=== PATIENT | male | born 1995 | race American Indian/Alaskan Native ===

== ENCOUNTER 2020-07-13 03:27 | Emergency (ER) | payer SELFPAY ==
--- NOTE | 2020-07-13 04:38 | EDM.PDOC ---
ED HPI GENERAL MEDICAL PROBLEM - General Chief Complaint: Genitourinary Problem Stated Complaint: URINATING BLOOD Time Seen by Provider: 07/13/20 03:55 Source of Information: Reports: Patient, RN, RN Notes Reviewed History Limitations: Reports: No Limitations - History of Present Illness INITIAL COMMENTS - FREE TEXT/NARRATIVE: Patient presents to the ED via personal vehicle with complaints of gross hematuria. The patient reports he first noted the hematuria three days ago following sexual intercourse. He has since noted the blood transiently when he urinates. He denies dysuria or inability to fully void. He denies fever, shaking chills, palpitations, nausea, vomiting, diarrhea, melena, or hematochezia. He does note the intercourse was with a new partner and he did n ot wear a condom. The patient states he has been taking amoxicillin for two days, which he got from a family member. - Related Data Allergies Allergy/AdvReac Type Severity Reaction Status Date / Time bee venom protein (honey bee) Allergy Swelling Verified 07/13/20 03:34 Home Meds: Home Meds . [No Known Home Meds] 07/13/20 [History] Past Medical History - Past Health History Medical/Surgical History: Denies Medical/Surgical History Social & Family History - Tobacco Use Tobacco Use Status *Q: Current Every Day Tobacco User Years of Tobacco use: 8 Packs/Tins Daily: 0.2 Second Hand Smoke Exposure: Yes - Recreational Drug Use Recreational Drug Use: Yes Drug Use in Last 12 Months: Yes Recreational Drug Type: Reports: Marijuana/Hashish ED ROS GENERAL - Review of Systems Review Of Systems: Comprehensive ROS is negative, except as noted in HPI. ED EXAM, RENAL/ - Physical Exam Exam: See Below Exam Limited By: No Limitations General Appearance: Alert, No Apparent Distress Throat/Mouth: Normal Voice, No Airway Compromise Respiratory/Chest: No Respiratory Distress, Lungs Clear, Normal Breath Sounds, No Accessory Muscle Use, Chest Non-Tender Cardiovascular: Normal Peripheral Pulses, Regular Rate, Rhythm, No Edema, No Gallop, No JVD, No Murmur, No Rub GI/Abdominal: Normal Bowel Sounds, Soft, Non-Tender, No Distention, No Abnormal Bruit, No Mass, Pelvis Stable Back Exam: Normal Inspection, Full Range of Motion. No: CVA Tenderness (L), CVA Tenderness (R) Extremities: Normal Inspection, Normal Range of Motion, Non-Tender, Normal Capillary Refill, No Pedal Edema Neurological: Alert, Oriented, CN II-XII Intact, Normal Cognition, Normal Gait, No Motor/Sensory Deficits Psychiatric: Normal Affect, Normal Mood Skin Exam: Warm, Dry, Intact, Normal Color, No Rash. No: Ecchymosis, Erythema, Jaundice, Mottled, Pallor, Petechiae Course - Vital Signs Last Recorded V/S: Last Vital Signs Temp 97.9 F 07/13/20 03:31 Pulse 106 H 07/13/20 03:31 Resp 18 07/13/20 03:31 BP 128/83 07/13/20 03:31 Pulse Ox 97 07/13/20 03:31 - Orders/Labs/Meds Labs: Laboratory Tests 07/13/20 07/13/20 07/13/20 Range/Units 03:35 04:19 04:19 WBC 5.3 (5.0-10.0) 10^3/uL RBC 5.37 (4.6-6.2) 10^6/uL Hgb 16.4 (14.0-18.0) g/dL Hct 46.5 (40.0-54.0) % MCV 86.6 (80-100) fL MCH 30.5 (27.0-34.0) pg MCHC 35.3 H (33.0-35.0) g/dL Plt Count 209 (150-450) 10^3/uL Neut % (Auto) 43.1 (42.2-75.2) % Lymph % (Auto) 48.0 (20.5-50.1) % [place] % (Auto) 6.4 (2-8) % Eos % (Auto) 1.7 (1.0-3.0) % Baso % (Auto) 0.8 (0.0-1.0) % Add Manual Diff Yes Neutrophils % (Manual) 43 (42-75) % Band Neutrophils % 3 % Lymphocytes % (Manual) 45 (20-50) % Monocytes % (Manual) 7 (2-8) % Eosinophils % (Manual) 2 (1-3) % Sodium 146 H (136-145) mmol/L Potassium 3.7 (3.5-5.1) mmol/L Chloride 106 (98-107) mmol/L Carbon Dioxide 29 (21-32) mmol/L Anion Gap 14.7 H (7-13) mEq/L BUN 10 (7-18) mg/dL Creatinine 0.98 (0.70-1.30) mg/dL Est Cr Clr Drug Dosing 120.01 mL/min Estimated GFR (MDRD) > 60 BUN/Creatinine Ratio 10.2 (No establ ref range) Glucose 101 H (74-99) mg/dL Calcium 8.1 L (8.5-10.1) mg/dL Total Bilirubin 0.5 (0.2-1.0) mg/dL AST 37 (15-37) U/L ALT 77 H (16-63) U/L Alkaline Phosphatase 103 (46-116) U/L Total Protein 7.6 (6.4-8.2) g/dL Albumin 3.9 (3.4-5.0) g/dL Globulin 3.7 Albumin/Globulin Ratio 1.1 Urine Color Dark yellow (YELLOW) Urine Appearance Cloudy (CLEAR) Urine pH 5.5 (5.0-9.0) Ur Specific [place] >= 1.030 (1.005-1.030) Urine Protein 100 H (NEGATIVE) Urine Glucose (UA) Negative (NEGATIVE) Urine Ketones Negative (NEGATIVE) Urine Occult Blood Large H (NEGATIVE) Urine Nitrite Negative (NEGATIVE) Urine Bilirubin Negative (NEGATIVE) Urine Urobilinogen 0.2 (0.2-1.0) mg/dL Ur Leukocyte Esterase Negative (NEGATIVE) Urine RBC >100 H /HPF Urine WBC 0-5 (0-5/HPF) /HPF Ur Epithelial Cells Rare (NOT SEEN) /HPF Amorphous Sediment Few (NOT SEEN) /HPF Urine Bacteria Few (0-FEW/HPF) /HPF Granular Casts (Auto) Occasional Urine Mucus Few H (NOT SEEN) /LPF - Re-Assessments/Exams Free Text/Narrative Re-Assessment/Exam: 07/13/20 UA remarkable for large amount of occult blood and RBC; no evidence of infection. CBC unremarkable for acute processes. Liver and kidney function appropriate. CT abdomen and pelvis unremarkable for acute processes; no evidence of stones, ureter dilation, ductal dilation, bladder wall thickening, or hydronephrosis. Unable to discuss findings with patient as he left AMA following CT scan. Departure - Departure Time of Disposition: 06:22 Disposition: Against Medical Advice 07 Condition: Good Clinical Impression: Left against medical advice - Discharge Information *PRESCRIPTION DRUG MONITORING PROGRAM REVIEWED*: Not Applicable *COPY OF PRESCRIPTION DRUG MONITORING REPORT IN PATIENT KAREN: Not Applicable Instructions: Hematuria, Adult Referrals: PCP,Unobtain [Primary Care Provider] - Forms: ED Department Discharge Additional Instructions: 1.) Follow up with primary care provider should blood in urine continue. 2.) You will be contacted regarding your STD test. 3.) Do no take antibiotics that are not prescribed to you. Sepsis Event Note (ED) - Evaluation Sepsis Screening Result: No Definite Risk
[2020-07-13 04:44] LABS: ANION GAP 14.7 mEq/L (7-13); CHLORIDE,CL 106 mmol/L (98-107); SODIUM,NA 146 mmol/L (136-145)
--- NOTE | 2020-07-13 05:20 | CT ---
PROCEDURE INFORMATION: Exam: CT Abdomen And Pelvis Without Contrast Exam date and time: 07/13/2020 4:46 AM Age: 25 years old Clinical indication: Other: Gross hematuria; Prior surgery; Surgery date: 6+ months; Surgery type: Appendix removed; Additional info: Gross hematuria x3 days; R/O renal stones TECHNIQUE: Imaging protocol: Computed tomography of the abdomen and pelvis without contrast. Radiation optimization: All CT scans at this facility use at least one of these dose optimization techniques: automated exposure control; mA and/or kV adjustment per patient size (includes targeted exams where dose is matched to clinical indication); or iterative reconstruction. COMPARISON: No relevant prior studies available. FINDINGS: Liver: Fatty infiltration of the liver. Gallbladder and bile ducts: Normal. No calcified stones. No ductal dilation. Pancreas: Normal. No ductal dilation. Spleen: Normal. No splenomegaly. Adrenal glands: Normal. No mass. Kidneys and ureters: Normal. No hydronephrosis. Stomach and bowel: Unremarkable. No obstruction. No mucosal thickening. Appendix: No evidence of appendicitis. Intraperitoneal space: Unremarkable. No free air. No significant fluid collection. Vasculature: Unremarkable. No abdominal aortic aneurysm. Lymph nodes: Unremarkable. No enlarged lymph nodes. Urinary bladder: Unremarkable as visualized. Reproductive: Unremarkable as visualized. Bones/joints: Unremarkable. No acute fracture. Soft tissues: Unremarkable. IMPRESSION: No definite evidence of acute abdominal or pelvic pathology. No etiology for the patient's hematuria is identified. Remainder of findings as described above.
== END 2020-07-13 06:20 | disposition left against medical advice (07) ==
LOC: DL.ED 03:27
DX: R31.0 Gross hematuria (principal); Z91.030 Bee allergy status; Z72.0 Tobacco use
CPT/HCPCS: 36415; 74176; 80053; 81001; 85025; 87491; 87563; 87591; 99282; 99284-25

== ENCOUNTER 2022-01-05 02:18 | Emergency (ER) | payer SELFPAY ==
[2022-01-05] MEDS ORDERED: Iopamidol 612 MG/ML 100 ML Bottle IVPUSH ONE (02:27)
[2022-01-05] MEDS ORDERED: Bacitracin Oint 1 GM U/D Packet TOP ONE (03:25)
[2022-01-05] MEDS ORDERED: Lidocaine 1% 5 ML VIAL INJECT ONE (03:25)
[2022-01-05 03:42] LABS: ANION GAP 20.2 mEq/L (7-13)
== END 2022-01-05 04:35 | disposition home or self-care (01) ==
LOC: DL.ED 02:18
DX: S01.111A Laceration without foreign body of right eyelid and periocular area, initial encounter (principal); S61.214A Laceration without foreign body of right ring finger without damage to nail, initial encounter; S60.221A Contusion of right hand, initial encounter; Z91.030 Bee allergy status; Y04.2XXA Assault by strike against or bumped into by another person, initial encounter
CPT/HCPCS: 12001; 12011; 36415; 70450; 70486; 71260; 72125; 73120; 74177; 80053; 80143; 80179; 80307; 83735; 85025; 87040; 99284; Q9967

== ENCOUNTER 2022-08-25 19:34 | Emergency (ER) | payer OTHER ==
[2022-08-25] MEDS ORDERED: Lactated Ringers 500 ML IV ONE (19:46)
[2022-08-25] MEDS ORDERED: Sodium Chloride 0.9% 10 ML Syringe FLUSH PRN (19:46)
[2022-08-25 20:13] LABS: ANION GAP 14.2 mEq/L (7-13)
[2022-08-25 20:57] LABS: AMPHETAMINES,URINE NEGATIVE (NEGATIVE); BARBITURATES,URINE NEGATIVE (NEGATIVE); BENZODIAZEPINE,URINE NEGATIVE (NEGATIVE); MDMA (ECSTASY), URINE NEGATIVE (NEGATIVE); METHADONE,URINE NEGATIVE (NEGATIVE); METHAMPHETAMINES,URINE POSITIVE (NEGATIVE); OPIATES,URINE NEGATIVE (NEGATIVE); OXYCODONE,URINE NEGATIVE (NEGATIVE); PHENCYCLIDINE,URINE NEGATIVE (NEGATIVE); TCA,URINE NEGATIVE (NEGATIVE)
== END 2022-08-25 21:08 ==
LOC: DL.ED 19:34
DX: S80.812A Abrasion, left lower leg, initial encounter (principal); S50.812A Abrasion of left forearm, initial encounter; F10.920 Alcohol use, unspecified with intoxication, uncomplicated; Z91.030 Bee allergy status; Y90.7 Blood alcohol level of 200-239 mg/100 ml; V89.2XXA Person injured in unspecified motor-vehicle accident, traffic, initial encounter; Y92.410 Unspecified street and highway as the place of occurrence of the external cause
CPT/HCPCS: 36415; 80053; 80305-QW; 80307; 83735; 85025; 96360; 99283; 99284-25; J3490; J7120